=== PATIENT | male | born 1940 | race Caucasian/White ===

== ENCOUNTER 2019-03-22 10:54 | Emergency (ER) | payer OTHER ==
[~2019-03-22] VITALS: Ht 167.6 cm; Wt 99.8 kg
[~2019-03-22 10:54] MED LIST: ATORVASTATIN CA40 M1; GLIPIZIDE5 MG PO; KEFLEX500 MG PO
[2019-03-22 10:58] VITALS: BP 140/60; Ht 167.6 cm; Wt 99.8 kg
== END 2019-03-22 11:30 | disposition home or self-care (01) ==
LOC: ED 10:54
DX: M10.071 Idiopathic gout, right ankle and foot (principal); E11.22 Type 2 diabetes mellitus with diabetic chronic kidney disease; I12.9 Hypertensive chronic kidney disease with stage 1 through stage 4 chronic kidney disease, or unspecified chronic kidney disease; N18.4 Chronic kidney disease, stage 4 (severe); E78.00 Pure hypercholesterolemia, unspecified

== ENCOUNTER 2020-03-01 14:35 | Emergency (ER) | payer OTHER ==
[~2020-03-01] VITALS: Ht 170.2 cm; Wt 91.6 kg
[2020-03-01 14:37] VITALS: Ht 170.2 cm; Wt 91.6 kg
[2020-03-01 15:48] VITALS: BP 151/69
== END 2020-03-01 15:48 | disposition home or self-care (01) ==
LOC: ED 14:35
DX: M25.511 Pain in right shoulder (principal); E11.22 Type 2 diabetes mellitus with diabetic chronic kidney disease; I12.9 Hypertensive chronic kidney disease with stage 1 through stage 4 chronic kidney disease, or unspecified chronic kidney disease; N18.4 Chronic kidney disease, stage 4 (severe); E78.00 Pure hypercholesterolemia, unspecified

== ENCOUNTER 2020-04-02 09:14 | Emergency (ER) | payer OTHER ==
[~2020-04-02] VITALS: Ht 172.7 cm; Wt 98.4 kg
[2020-04-02 09:35] VITALS: BP 139/70; Ht 172.7 cm; Wt 98.4 kg
== END 2020-04-02 10:11 | disposition home or self-care (01) ==
LOC: ED 09:14
DX: M25.511 Pain in right shoulder (principal); I10 Essential (primary) hypertension; E11.9 Type 2 diabetes mellitus without complications; E78.00 Pure hypercholesterolemia, unspecified; W18.30XA Fall on same level, unspecified, initial encounter; Y93.89 Activity, other specified; Y92.89 Other specified places as the place of occurrence of the external cause; Y99.8 Other external cause status
CPT/HCPCS: J1885

== ENCOUNTER 2020-06-02 10:32 | Emergency (ER) | payer OTHER ==
[~2020-06-02] VITALS: Ht 165.1 cm; Wt 96.2 kg
[2020-06-02 10:50] VITALS: BP 110/65; Ht 165.1 cm; Wt 96.2 kg
== END 2020-06-02 11:48 | disposition home or self-care (01) ==
LOC: ED 10:32
DX: B02.9 Zoster without complications (principal); I10 Essential (primary) hypertension; E11.9 Type 2 diabetes mellitus without complications